=== PATIENT | female | born 1965 | race Caucasian/White ===

== ENCOUNTER 2021-08-18 11:28 | Inpatient (IN) | payer OTHER ==
[~2021-08-18] VITALS: Ht 172.7 cm; Wt 114.8 kg
[2021-08-18] MEDS ORDERED: MELOXICAM7.5 MG PO (15:58)
[2021-08-18] MEDS ORDERED: INSULIN AS100 UNIT/2 SUB-Q (15:59)
[2021-08-19] MEDS ORDERED: TUMS200 MG PO (12:31)
[2021-08-19] MEDS ORDERED: HYDROCODON-ACE1 EA10 PO (12:32)
[2021-08-19] MEDS ORDERED: HUMULIN N100 UNIT/3 SUB-Q (12:48)
[2021-08-19] MEDS ORDERED: CREON DR 24,001 EACH PO ×2 (12:49)
[2021-08-19] MEDS ORDERED: REGLAN10 MG PO (12:50)
[2021-08-19] MEDS ORDERED: ZESTRIL10 MG PO (12:50)
[2021-08-19] MEDS ORDERED: TOPROL XL25 MG PO (12:50)
[2021-08-19] MEDS ORDERED: MULTI VITAMIN1 EACH PO (13:13)
[2021-08-19] MEDS ORDERED: ONDANSETRON ODT8 MG PO (13:13)
[2021-08-19] MEDS ORDERED: MIRALAX17 GM PO (13:14)
[2021-08-19] MEDS ORDERED: TYLENOL325 MG PO (13:14)
[2021-08-19] MEDS ORDERED: OMEPRAZOLE20 MG PO (13:15)
[2021-08-19] MEDS ORDERED: ALLER-TEC10 MG PO (13:16)
[2021-08-19] MEDS ORDERED: FLUTICASONE PRO16 GM NAS (13:17)
[2021-08-19] MEDS ORDERED: PROBIOTIC-10 11 EACH PO (13:17)
[2021-08-24] MEDS ORDERED: ZESTRIL10 MG PO (12:11)
[2021-08-24] MEDS ORDERED: TOPROL XL25 MG PO (12:11)
[2021-08-24] MEDS ORDERED: CREON DR 24,001 EACH PO (12:20)
[2021-08-24] MEDS ORDERED: OMEPRAZOLE20 MG PO (12:21)
[2021-08-24] MEDS ORDERED: REGLAN10 MG PO (12:21)
[2021-08-24] MEDS ORDERED: HUMULIN N100 UNIT/3 SUB-Q (12:22)
[2021-08-24] MEDS ORDERED: BLOOD GLUCOSE1 EAC1 MISC (12:23)
[2021-08-24] MEDS ORDERED: LANCETS1 EACH MISC (12:24)
[2021-08-24] MEDS ORDERED: BLOOD GLUCOSE1 EAC8 MISC (12:24)
== END 2021-08-24 13:40 | disposition home or self-care (01) | DRG 948 ==
LOC: MS 11:28
PROVIDERS: ADMIT Internal Medicine; ATTEND Internal Medicine
DX: R53.1 Weakness (principal); K86.81 Exocrine pancreatic insufficiency; E13.9 Other specified diabetes mellitus without complications; I51.89 Other ill-defined heart diseases; J30.2 Other seasonal allergic rhinitis; K21.9 Gastro-esophageal reflux disease without esophagitis; Z90.411 Acquired partial absence of pancreas; Z90.81 Acquired absence of spleen; Z98.890 Other specified postprocedural states; Z88.8 Allergy status to other drugs, medicaments and biological substances; Z79.4 Long term (current) use of insulin; Z79.899 Other long term (current) drug therapy
CPT/HCPCS: 97110; 97116; 97162; 97165; 97530; J1815